=== PATIENT | male | born 1995 | race Caucasian/White ===

== ENCOUNTER 2016-07-13 04:32 | Emergency (ER) | payer BC, SELFPAY ==
--- NOTE | 2016-07-13 07:29 | EDDOCDS ---
Physician Documentation [facility] Name: Vipin Bray Age: 20 yrs Sex: Male : 1995 Arrival Date: 07/13/2016 Time: 04:32 Bed 17 Private MD: Disposition: 07/13/16 07:13 Discharged to Home/Self Care. Impression: Low back pain, Radiculopathy, lumbar region - affecting right leg. - Condition is Stable. - Discharge Instructions: Back Pain, Adult. - Prescriptions for Naprosyn 500 mg Oral Tablet - take 1 tablet by ORAL route every 12 hours As needed take with food; 30 tablet. Cyclobenzaprine 10 mg Oral Tablet - take 1 tablet by ORAL route at bedtime As needed; 12 tablet. - Medication Reconciliation, Work Release Form - 2 day, Local Pharmacy Hours form. - Follow up: Emergency Department; When: As needed; Reason: Worsening of conditions. [facility]; When: Call to arrange an appointment; Reason: Recheck today's complaints, Continuance of care, To establish care. - Problem is new. - Symptoms are unchanged. Historical: - Allergies: No known drug Allergies; - Home Meds: 1. none - PMHx: none; - PSHx: Tonsillectomy; - Social history: Smoking status: Patient uses tobacco products, current every day smoker. No barriers to communication noted, The patient speaks fluent Vietnamese. - : The pt / caregiver states he / she is not on anticoagulants. Home medication list is obtained from the patient. - Exposure Risk Screening:: None identified. Vital Signs: 07/13 04:39 BP 186 / 93 RA Sitting (auto/); Pulse 120; Resp 18; Temp 97.7(TE); Pulse Ox 98% on R/A; af2 Weight 120.2 kg / 265 lbs (R); Height 6 ft. 0 in. (182.88 cm) (R); Pain 7/10; 07:14 BP 168 / 92 RA Sitting (man/lg); nb2 04:39 Body Mass Index 35.94 (120.20 kg, 182.88 cm) af2 MDM: 07:03 Recheck B/P ordered. dt4 Signatures: Clark Roy,RN RN jmk Tschudi, Akosua, PA-C PA-C dt4 Olsen,Agnes,RN RN af2 MTDD
--- NOTE | 2016-07-13 07:29 | EDDOCDS ---
Nurse's Notes [facility] Name: Vipin Bray Age: 20 yrs Sex: Male : 1995 Arrival Date: 07/13/2016 Time: 04:32 Bed 17 Private MD: Diagnosis: Low back pain;Radiculopathy, lumbar region-affecting right leg Presentation: 07/13 04:40 Presenting complaint: Patient states: onset of low back pain 3 days ago, this am af2 radiating down right leg and causing tingling. Adult Sepsis Screening: The patient does not have new or worsening altered mentation. Patient's respiratory rate is less than 22. Systolic blood pressure is greater than 100. Patient has a qSOFA score of 0- Negative Sepsis Screen. Suicide/Homicide risk assessment- the patient denies having any suicidal and/or homicidal ideations and does not present with any other emotional, behavioral or mental health complaints. 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 Transition of care: patient was not received from another setting of care. 04:40 Acuity: DANISHA Level 4 af2 04:40 Method Of Arrival: Walkin/Carried/Asstd af2 Triage Assessment: 04:41 General: Appears in no apparent distress, Behavior is appropriate for age. Pain: af2 Location: back Pain currently is 7 out of 10 on a pain scale. Pt Declines HIV testing. Musculoskeletal: Reports pain in back. Historical: - Allergies: No known drug Allergies; - Home Meds: 1. none - PMHx: none; - PSHx: Tonsillectomy; - Social history: Smoking status: Patient uses tobacco products, current every day smoker. No barriers to communication noted, The patient speaks fluent Venezuelan. - : The pt / caregiver states he / she is not on anticoagulants. Home medication list is obtained from the patient. - Exposure Risk Screening:: None identified. Screenin:28 Screening information is obtained from the patient. Fall risk: No risks identified. js15 Assistance ADL's: requires no assistance with activities of daily living. Assistance ADL's: requires no assistance with activities of daily living. Abuse/DV Screen: The patient / caregiver reports he/she is:. Nutritional screening: No deficits noted. Advance Directives: There is no active DNR order. home support is adequate. Assessment: 06:25 General: Appears in no apparent distress, comfortable, Behavior is appropriate for age, js15 cooperative. Pain: Location: right low back Pain currently is 7 out of 10 on a pain scale. Pain radiates to right lower back, right gluteus cm and right leg. Neurological: Level of Consciousness is awake, alert, obeys commands, Oriented to person, place, time, Gait is steady. Respiratory: Airway is patent Respiratory effort is even, unlabored, Respiratory pattern is regular, symmetrical. Derm: Skin is pink, warm & dry. Musculoskeletal: small, half dollar sized knot in deep tissue of right lower back. Vital Signs: 04:39 BP 186 / 93 RA Sitting (auto/); Pulse 120; Resp 18; Temp 97.7(TE); Pulse Ox 98% on R/A; af2 Weight 120.2 kg (R); Height 6 ft. 0 in. (182.88 cm) (R); Pain 7/10; 07:14 BP 168 / 92 RA Sitting (man/lg); nb2 04:39 Body Mass Index 35.94 (120.20 kg, 182.88 cm) af2 Vitals: 04:39 Log In Time: July 13, 2016 at 04:33. af2 ED Course: 04:33 Patient visited by Sierra Barraza Reg. hs2 04:33 Patient moved to Waiting hs2 04:37 Patient moved to Triage 1 af2 04:40 Triage Initiated af2 04:41 Patient visited by Agnes OlsenRN. af2 04:42 Patient moved to Waiting af2 05:33 Patient moved to 17 af2 06:25 Patient visited by Peri Gaytan RN. js15 06:28 Patient visited by Peri Gaytan RN. js15 07:03 Akosua Peacock PA-C is PHCP. dt4 07:03 Laura Gutierrez MD is Attending Physician. dt4 07:03 Patient visited by Akosua Peacock PA-C. dt4 07:13 [facility] is Referral Physician. dt4 07:15 Patient visited by Luz Elena Hinton. nb2 07:28 No IV's were initiated during this patient's visit. No procedures done that require jmk assistance. Order Results: There are currently no results for this order. Outcome: 07:13 Discharge ordered by Provider. dt4 07:28 Discharge Assessment: Patient awake, alert and oriented x 3. No cognitive and/or jmk functional deficits noted. Patient verbalized understanding of disposition instructions. patient administered narcotics - no. The following High Risk Discharge criteria are identified: None. Discharged to home ambulatory. Condition: good. Discharge instructions given to patient, Instructed on discharge instructions, follow up and referral plans. medication usage, Demonstrated understanding of instructions, medications, Pt was receptive of discharge instructions/ teaching. Prescriptions given X 2. Instructed on hypertension. No special radiology studies were completed. Property :Personal belongings accompany Pt. 07:28 Patient left the ED. [facility] Signatures: Clark Roy,RN RN Akosua Jules, PA-C PA-C dt4 Agnes Olsen,RN RN af2 Peri GaytanRN RN js15 Sierra Barraza, Reg Reg hs2 Luz Elena Hinton2 MAURIZIO
--- NOTE | 2016-07-15 08:29 | EDDOCDS ---
Physician Documentation [facility] Name: Vipin Bray Age: 20 yrs Sex: Male : 1995 Arrival Date: 07/13/2016 Time: 04:32 Bed 17 Private MD: Disposition: 07/13/16 07:13 Discharged to Home/Self Care. Impression: Low back pain, Radiculopathy, lumbar region - affecting right leg. - Condition is Stable. - Discharge Instructions: Back Pain, Adult. - Prescriptions for Naprosyn 500 mg Oral Tablet - take 1 tablet by ORAL route every 12 hours As needed take with food; 30 tablet. Cyclobenzaprine 10 mg Oral Tablet - take 1 tablet by ORAL route at bedtime As needed; 12 tablet. - Medication Reconciliation, Work Release Form - 2 day, Local Pharmacy Hours form. - Follow up: Emergency Department; When: As needed; Reason: Worsening of conditions. [facility]: [facility]; When: Call to arrange an appointment; Reason: Recheck today's complaints, Continuance of care, To establish care. - Problem is new. - Symptoms are unchanged. Historical: - Allergies: No known drug Allergies; - Home Meds: 1. none - PMHx: none; - PSHx: Tonsillectomy; - Social history: Smoking status: Patient uses tobacco products, current every day smoker. No barriers to communication noted, The patient speaks fluent Maori. - : The pt / caregiver states he / she is not on anticoagulants. Home medication list is obtained from the patient. - Exposure Risk Screening:: None identified. Vital Signs: 07/13 04:39 BP 186 / 93 RA Sitting (auto/); Pulse 120; Resp 18; Temp 97.7(TE); Pulse Ox 98% on R/A; af2 Weight 120.2 kg / 265 lbs (R); Height 6 ft. 0 in. (182.88 cm) (R); Pain 7/10; 07:14 BP 168 / 92 RA Sitting (man/lg); nb2 04:39 Body Mass Index 35.94 (120.20 kg, 182.88 cm) af2 MDM: 07:03 Recheck B/P ordered. dt4 07:32 Financial registration complete. mm15 08:35 [facility] Payment Agreement was scanned into [employer] and attached to record. mm15 Signatures: Clark Roy,RN RN Alison Goyal mm15 Akosua Peacock PA-C PA-C dt4 Agnes OlsenRN RN af2 The chart was reviewed and I authenticate all verbal orders and agree with the evaluation and treatment provided.Attachments: 08:35 [facility] Payment Agreement mm15 Chart Complete MTDD
--- NOTE | 2016-07-15 08:29 | EDDOCDS ---
Physician Documentation [facility] Name: Vipin Bray Age: 20 yrs Sex: Male : 1995 Arrival Date: 07/13/2016 Time: 04:32 Bed 17 Private MD: Disposition: 07/13/16 07:13 Discharged to Home/Self Care. Impression: Low back pain, Radiculopathy, lumbar region - affecting right leg. - Condition is Stable. - Discharge Instructions: Back Pain, Adult. - Prescriptions for Naprosyn 500 mg Oral Tablet - take 1 tablet by ORAL route every 12 hours As needed take with food; 30 tablet. Cyclobenzaprine 10 mg Oral Tablet - take 1 tablet by ORAL route at bedtime As needed; 12 tablet. - Medication Reconciliation, Work Release Form - 2 day, Local Pharmacy Hours form. - Follow up: Emergency Department; When: As needed; Reason: Worsening of conditions. Follow [facility]: [facility]; When: Call to arrange an appointment; Reason: Recheck today's complaints, Continuance of care, To establish care. - Problem is new. - Symptoms are unchanged. Historical: - Allergies: No known drug Allergies; - Home Meds: 1. none - PMHx: none; - PSHx: Tonsillectomy; - Social history: Smoking status: Patient uses tobacco products, current every day smoker. No barriers to communication noted, The patient speaks fluent Azeri. - : The pt / caregiver states he / she is not on anticoagulants. Home medication list is obtained from the patient. - Exposure Risk Screening:: None identified. Vital Signs: 07/13 04:39 BP 186 / 93 RA Sitting (auto/); Pulse 120; Resp 18; Temp 97.7(TE); Pulse Ox 98% on R/A; af2 Weight 120.2 kg / 265 lbs (R); Height 6 ft. 0 in. (182.88 cm) (R); Pain 7/10; 07:14 BP 168 / 92 RA Sitting (man/lg); nb2 04:39 Body Mass Index 35.94 (120.20 kg, 182.88 cm) af2 MDM: 07:03 Recheck B/P ordered. dt4 07:32 Financial registration complete. mm15 08:35 [facility] Payment Agreement was scanned into [employer] and attached to record. mm15 Signatures: Clark Roy,RN RN Alison Goyal mm15 Akosua Peacock PA-C PA-C dt4 Agnes OlsenRN RN af2 The chart was reviewed and I authenticate all verbal orders and agree with the evaluation and treatment provided.Attachments: 08:35 [facility] Payment Agreement mm15 Chart Complete MTDD
--- NOTE | 2016-07-15 08:29 | EDDOCDS ---
Nurse's Notes [facility] Name: Vipin Bray Age: 20 yrs Sex: Male : 1995 Arrival Date: 07/13/2016 Time: 04:32 Bed 17 Private MD: Diagnosis: Low back pain;Radiculopathy, lumbar region-affecting right leg Presentation: 07/13 04:40 Presenting complaint: Patient states: onset of low back pain 3 days ago, this am af2 radiating down right leg and causing tingling. Adult Sepsis Screening: The patient does not have new or worsening altered mentation. Patient's respiratory rate is less than 22. Systolic blood pressure is greater than 100. Patient has a qSOFA score of 0- Negative Sepsis Screen. Suicide/Homicide risk assessment- the patient denies having any suicidal and/or homicidal ideations and does not present with any other emotional, behavioral or mental health complaints. 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 Transition of care: patient was not received from another setting of care. 04:40 Acuity: DANISHA Level 4 af2 04:40 Method Of Arrival: Walkin/Carried/Asstd af2 Triage Assessment: 04:41 General: Appears in no apparent distress, Behavior is appropriate for age. Pain: af2 Location: back Pain currently is 7 out of 10 on a pain scale. Pt Declines HIV testing. Musculoskeletal: Reports pain in back. Historical: - Allergies: No known drug Allergies; - Home Meds: 1. none - PMHx: none; - PSHx: Tonsillectomy; - Social history: Smoking status: Patient uses tobacco products, current every day smoker. No barriers to communication noted, The patient speaks fluent Iranian. - : The pt / caregiver states he / she is not on anticoagulants. Home medication list is obtained from the patient. - Exposure Risk Screening:: None identified. Screenin:28 Screening information is obtained from the patient. Fall risk: No risks identified. js15 Assistance ADL's: requires no assistance with activities of daily living. Assistance ADL's: requires no assistance with activities of daily living. Abuse/DV Screen: The patient / caregiver reports he/she is:. Nutritional screening: No deficits noted. Advance Directives: There is no active DNR order. home support is adequate. Assessment: 06:25 General: Appears in no apparent distress, comfortable, Behavior is appropriate for age, js15 cooperative. Pain: Location: right low back Pain currently is 7 out of 10 on a pain scale. Pain radiates to right lower back, right gluteus cm and right leg. Neurological: Level of Consciousness is awake, alert, obeys commands, Oriented to person, place, time, Gait is steady. Respiratory: Airway is patent Respiratory effort is even, unlabored, Respiratory pattern is regular, symmetrical. Derm: Skin is pink, warm & dry. Musculoskeletal: small, half dollar sized knot in deep tissue of right lower back. Vital Signs: 04:39 BP 186 / 93 RA Sitting (auto/); Pulse 120; Resp 18; Temp 97.7(TE); Pulse Ox 98% on R/A; af2 Weight 120.2 kg (R); Height 6 ft. 0 in. (182.88 cm) (R); Pain 7/10; 07:14 BP 168 / 92 RA Sitting (man/lg); nb2 04:39 Body Mass Index 35.94 (120.20 kg, 182.88 cm) af2 Vitals: 04:39 Log In Time: July 13, 2016 at 04:33. af2 ED Course: 04:33 Patient visited by Sierra Barraza Reg. hs2 04:33 Patient moved to Waiting hs2 04:37 Patient moved to Triage 1 af2 04:40 Triage Initiated af2 04:41 Patient visited by Agnes OlsenRN. af2 04:42 Patient moved to Waiting af2 05:33 Patient moved to 17 af2 06:25 Patient visited by Peri Gaytan RN. js15 06:28 Patient visited by Peri Gaytan RN. js15 07:03 Akosua Peacock PA-C is PHCP. dt4 07:03 Laura Gutierrez MD is Attending Physician. dt4 07:03 Patient visited by Akosua Peacock PA-C. dt4 07:13 [facility] is Referral Physician. dt4 07:15 Patient visited by Luz Elena Hinton. nb2 07:28 No IV's were initiated during this patient's visit. No procedures done that require jmk assistance. 08:35 [facility] Payment Agreement was scanned into [employer] and attached to record. mm15 Order Results: There are currently no results for this order. Outcome: 07:13 Discharge ordered by Provider. dt4 07:28 Discharge Assessment: Patient awake, alert and oriented x 3. No cognitive and/or jmk functional deficits noted. Patient verbalized understanding of disposition instructions. patient administered narcotics - no. The following High Risk Discharge criteria are identified: None. Discharged to home ambulatory. Condition: good. Discharge instructions given to patient, Instructed on discharge instructions, follow up and referral plans. medication usage, Demonstrated understanding of instructions, medications, Pt was receptive of discharge instructions/ teaching. Prescriptions given X 2. Instructed on hypertension. No special radiology studies were completed. Property :Personal belongings accompany Pt. 07:28 Patient left the ED. [facility] Signatures: Clark Roy,RN RN Alison Goyal mm15 Akosua Peacock, PA-C PA-C dt4 Agnes OlsenRN RN af2 Peri Gaytan,RN RN js15 Sierra Barraza, Reg Reg hs2 Luz Elena Hinton2 Chart Complete [facility]
== END 2016-07-13 07:28 | disposition home or self-care (01) ==
LOC: M ED 04:32
DX: M54.16 Radiculopathy, lumbar region (principal); F17.210 Nicotine dependence, cigarettes, uncomplicated